=== PATIENT | male | born 1975 | race Caucasian/White ===

== ENCOUNTER 2022-04-18 08:49 | Outpatient (REF) | payer OTHER, SELFPAY ==
--- NOTE | ~2022-04-18 | XR_ITS ---
EXAMINATION: XR LUMBOSACRAL SPINE CLINICAL INFORMATION: Lower back pain COMPARISON: None TECHNIQUE: Three views of the lumbosacral spine. FINDINGS: No fracture or subluxation. Vertebral body height and alignment maintained. Disc spaces are maintained with small endplate osteophytes present. Mild facet arthropathy throughout. The sacroiliac joints are symmetric. The visualized sacrum is intact. XR/XR lumbar spine 2-3V IMPRESSION: Mild degenerative changes throughout the lumbar spine.
[2022-04-18 11:18] LABS: MANUAL DIFF FLAG NO
[2022-04-18 11:26] LABS: Basophils Percent Auto 0.3 % (0-2); Eosinophils Absolute Auto 0.1 X10*3/uL (0.0-0.4); Eosinophils Percent Auto 1.2 % (0-4); Hematocrit 45.9 % (42.0-52.0); Hemoglobin 15.6 g/dl (14.0-18.0); Imm Gran Abs Auto 0.03 X10*3/uL (0.00-0.03); Imm Gran Pct Auto 0.4 % (0.0-0.4); Lymphocytes Absolute Auto 2.3 X10*3/uL (1.2-4.9); Lymphocytes Percent Auto 34.3 % (20-40); Mean Corpuscular Hemoglobin 29.6 pg (27.0-33.0); Mean Corpuscular Volume 87.1 fL (80.0-98.0); Mean Platelet Volume 9.6 fL (9.4-12.4); Monocytes Absolute Auto 0.5 X10*3/uL (0.1-1.2); Monocytes Percent Auto 6.9 % (2-11); Neutrophils Absolute Auto 3.8 x10*3/uL (2.0-8.3); Neutrophils Percent Auto 56.9 % (45-73); Platelet Count 286 X10*3/uL (160-400); Red Blood Count 5.27 X10*6/uL (4.60-5.80); White Blood Count 6.7 X10*3/uL (4.8-10.8)
[2022-04-18 11:49] LABS: Alanine Aminotransferase 17 U/L (0-40); Albumin Level 4.3 g/dL (3.5-5.0); Alkaline Phosphatase 71 U/L (39-117); Anion Gap 11 (12-20); Aspartate Amino Transferase 18 U/L (5-37); Bilirubin Total 0.5 mg/dL (0.0-1.0); Blood Urea Nitrogen 10 mg/dL (9-16); Calcium 9.5 mg/dL (8.4-10.2); Carbon Dioxide 29 mmol/L (22-29); Chloride 104 mmol/L (96-108); Cholesterol 234 mg/dL; Estimated Glomerular Filt Rate > 60; Glucose Fasting 91 mg/dL (60-99); HDL Cholesterol 46 mg/dL; LDL Cholesterol Calculated 159 mg/dl; Potassium 4.6 mmol/L (3.3-5.1); Sodium 139 mmol/L (135-145); Total Protein 7.8 g/dL (6.5-8.0); Triglycerides 148 mg/dL
== END 2022-04-18 08:50 | disposition home or self-care (01) ==
LOC: HO.HMGCLDS 08:49
PROVIDERS: PCP Internal Medicine; Visit Provider Internal Medicine
DX: Z00.00 Encounter for general adult medical examination without abnormal findings (principal); M54.50 Low back pain, unspecified
CPT/HCPCS: 36415; 72100; 80053; 80061; 85025

== ENCOUNTER 2022-11-13 09:35 | Outpatient (AMB) | payer OTHER, SELFPAY ==
[2022-11-13 09:51] VITALS: BP 130/80; PULSE 80; TEMP 36.6; O2SAT 98; BMI 25.8
--- NOTE | 2022-11-13 09:51 | MHC.OFFWIV ---
Intake Vital Signs 11/13/22 09:51 Height 6 ft 1 in Weight 195 lb 8 oz BMI 25.8 BP 130/80 Blood Pressure Location Rt brachial Position Sitting Pulse 80 Pulse Source Pulse Oximeter Temp 97.8 F Temp Source Temporal Artery Scan Pulse Oximetry (%) 98 Oxygen Delivery Method Room Air Intake Visit Reasons: EP Bump on Back Intake Note: pt is here for bump on back Patient Tobacco Use Status: Never used Tobacco Allergies No Known Allergies Allergy (Verified 11/13/22 10:32) Medication List - Last Reconciled 11/13/22 by Nuno Gonzalez MD No Known Home Meds Do you need a note to return to daycare/school/sports/work: Yes HPI EP Bump on Back HPI Details 47-year-old male presents to the office for a sick visit. He has noticed a bump on his upper back. He noticed it a month ago. No pain or discomfort. Able to function and do all activities of daily living. PFSH Family History Father COPD (chronic obstructive pulmonary disease) Mother Hypertension Social History (Updated 04/17/22 @ 09:55 by Jacqueline English MD) Household Members Other:: , 2 children (4,6 ), Housing: House Patient Tobacco Use Status: Never used Tobacco e-Cigarette/Vaping Use: Never Used Current occupational status: employed Cognitive needs: No Hearing needs: No Vision needs: No Physical Exam Vital Signs: Last Vital Signs Temp 97.8 F 11/13/22 09:51 Pulse 80 11/13/22 09:51 BP 130/80 11/13/22 09:51 Pulse Ox 98 11/13/22 09:51 Oxygen Delivery Method Room Air 11/13/22 09:51 BMI result Body Mass Index 25.8 Back/Spine/Pelvis Other: Upper back: Just above the spine of the scapula a partially visible 3 cm swelling. Indistinct borders. No tenderness. Assessment & Plan Assessment & Plan (1) Lipoma: Code(s): D17.9 - Benign lipomatous neoplasm, unspecified Plan: Lesion mostly resembles a lipoma. An ultrasound has been ordered to confirm. Orders: Orders US chest Today D17.9 - Benign lipomatous neoplasm, unspecified Coding Level of Care Code Est Pt Level 4 (92771) Diagnoses Lipoma D17.9
== END 2022-11-13 10:29 | disposition home or self-care (01) ==
PROVIDERS: PCP Internal Medicine; Visit Provider Internal Medicine
DX: D17.9 Benign lipomatous neoplasm, unspecified (principal)
CPT/HCPCS: 99214

== ENCOUNTER 2022-11-15 14:42 | Outpatient (REF) | payer OTHER, SELFPAY | END 2022-11-15 14:43 | disposition home or self-care (01) | LOC: HO.HMGCX 14:42 | PROVIDERS: Visit Provider Internal Medicine | DX: D17.9 Benign lipomatous neoplasm, unspecified (principal) | CPT/HCPCS: 76604 ==

== ENCOUNTER 2022-11-30 11:42 | Outpatient (AMB) | payer OTHER, SELFPAY ==
[2022-11-30 11:44] VITALS: BP 104/66; PULSE 81; O2SAT 97; BMI 25.1
--- NOTE | 2022-11-30 11:44 | MHC.PC.OV ---
Vital Signs 11/30/22 11:44 Height 6 ft 1 in Weight 190 lb BMI 25.1 BP 104/66 Blood Pressure Location Lt brachial Position Sitting Pulse 81 Pulse Source Pulse Oximeter Pulse Oximetry (%) 97 Oxygen Delivery Method Room Air Intake Visit Reasons: Follow up Cholesterol Intake Note: Pt is here today for a follow up visit. Allergies No Known Allergies Allergy (Verified 11/30/22 11:46) Medication List - Last Reconciled 11/30/22 by Jacqueline English MD No Known Home Meds Tobacco use date assessed: 11/30/22 Dental Screening Dental Screen Date: 11/30/22 Did you have a dental visit in the last 12 months?: Yes Did you have a dental problem in the last 6 months where you did not have access to dental care?: No Was dental information given to patient?: Patient has dentist HPI Follow up Cholesterol HPI Details Patient presents for the follow-up of hyperlipidemia. He has been following low-cholesterol diet but still eating steaks occasionally and sweets. PFSH Family History Father COPD (chronic obstructive pulmonary disease) Mother Hypertension Social History (Updated 04/17/22 @ 09:55 by Jacqueline nEglish MD) Household Members Other:: , 2 children (4,6 ), Housing: House Patient Tobacco Use Status: Never used Tobacco e-Cigarette/Vaping Use: Never Used Current occupational status: employed Cognitive needs: No Hearing needs: No Vision needs: No Questionnaire Thrive Questionnaire Date Thrive assessed: 04/17/22 KELLEN-7 AMB Questionnaire KELLEN-7 Date KELLEN - 7 assessed: 04/17/22 Source: Developed by Drs. Mayur Kuo, Nadege Hope, Hector Harkins and colleagues, with an educational anuel from [employer]. Review of Systems Const All systems reviewed & are unremarkable except as noted in HPI and below Reports no additional complaints Eyes Reports no additional complaints ENT Reports no additional complaints Card Reports no additional complaints Resp Reports no additional complaints GI Reports no additional complaints Reports no additional complaints Physical exam (Primary Care) Vital Signs: Last Vital Signs Pulse 81 11/30/22 11:44 BP 104/66 11/30/22 11:44 Pulse Ox 97 11/30/22 11:44 Oxygen Delivery Method Room Air 11/30/22 11:44 BMI result Body Mass Index 25.1 Tobacco/Smoking Status: Tobacco use Status Tobacco use date assessed 11/30/22 11/30/22 11:48 Patient Tobacco Use Status Never used Tobacco 11/30/22 11:48 e-Cigarette/Vaping Use Never Used 11/30/22 11:48 Thrive Assessment: Date of Thrive Assessment Date Thrive assessed 04/17/22 11/30/22 11:48 Const General: no acute distress HENMT Head: Yes normal to inspection Neck Neck: Yes supple Resp Effort & Inspection: normal respiratory effort Auscultation: clear to auscultation bilaterally Cardio Rhythm: regular rhythm Heart sounds: S1 normal heart sound present and S2 normal heart sound present Assessment and Plan Assessment & Plan (1) Hyperlipidemia: Code(s): E78.5 - Hyperlipidemia, unspecified Plan: Continue low-cholesterol diet. patient will return for fasting lipid profile and follow-up in 4 months for physical (2) Lipoma: Comment: L subscapular region, US 11/18 Code(s): D17.9 - Benign lipomatous neoplasm, unspecified Plan: Check ultrasound report Orders: Orders Lipid Panel Today E78.5 - Hyperlipidemia, unspecified Comprehensive [place]. Panel Fast 4 Months E78.5 - Hyperlipidemia, unspecified, Z00.00 - Encounter for general adult medical examination without abnormal findings Complete Blood Count Auto Diff 4 Months E78.5 - Hyperlipidemia, unspecified, Z00.00 - Encounter for general adult medical examination without abnormal findings Lipid Panel 4 Months E78.5 - Hyperlipidemia, unspecified, Z00.00 - Encounter for general adult medical examination without abnormal findings UA w Microscopic 4 Months E78.5 - Hyperlipidemia, unspecified, Z00.00 - Encounter for general adult medical examination without abnormal findings Referrals Gastroenterology Referral E78.5 - Hyperlipidemia, unspecified, Z00.00 - Encounter for general adult medical examination without abnormal findings Coding Level of Care Code Est Pt Level 3 (38608) Diagnoses Hyperlipidemia E78.5 Lipoma D17.9
== END 2022-11-30 12:12 | disposition home or self-care (01) ==
PROVIDERS: PCP Internal Medicine; Visit Provider Internal Medicine
DX: E78.5 Hyperlipidemia, unspecified (principal); D17.9 Benign lipomatous neoplasm, unspecified
CPT/HCPCS: 99213

== ENCOUNTER 2022-12-09 07:43 | Outpatient (REF) | payer OTHER, SELFPAY ==
[2022-12-09 11:43] LABS: Cholesterol 213 mg/dL (<200); HDL Cholesterol 56 mg/dL (>40); LDL Cholesterol Calculated 147 mg/dL (<100); Triglycerides 51 mg/dL (<150)
== END 2022-12-09 07:44 | disposition home or self-care (01) ==
LOC: HO.HMGCLDS 07:43
PROVIDERS: PCP Internal Medicine; Visit Provider Internal Medicine
DX: E78.5 Hyperlipidemia, unspecified (principal)
CPT/HCPCS: 36415; 80061

== ENCOUNTER 2023-01-02 09:16 | Outpatient (AMB) | payer OTHER, SELFPAY ==
--- NOTE | 2023-01-02 09:17 | MHC.OFFVIS ---
Intake Vital Signs 01/02/23 09:23 Height 6 ft 1 in Weight 198 lb BMI 26.1 BP 131/68 Blood Pressure Location Rt brachial Position Sitting Pulse 85 Intake Visit Reasons: Lipoma~ Lt scapula region Intake Note: Patient referred for lipoma on back. Noticed for 1 month. Denies pain, itch, oozing. No personal or family hx of skin ca. 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 He has had this indeterminate time. It is increasing in size, become more symptomatic Patient has no such lesions elsewhere. Chart was reviewed patient evaluated. [facility] Surgical History (Updated 01/02/23 @ 09:45 by Jorgito Freedman MD) Hx of tonsillectomy Family History Father COPD (chronic obstructive pulmonary disease) Mother Hypertension Social History (Updated 01/02/23 @ 09:22 by BIB Granados) Household Members Other:: , 2 children (4,6 ), Housing: House Alcohol intake: current Alcohol intake frequency: holidays/special occasions only Alcohol type: hard liquor Patient Tobacco Use Status: Never used Tobacco e-Cigarette/Vaping Use: Never Used Current occupational status: employed Cognitive needs: No Hearing needs: No Vision needs: No Physical Exam Vital Signs: Last Vital Signs Pulse 85 01/02/23 09:23 BP 131/68 01/02/23 09:23 BMI result Body Mass Index 26.1 Const Other: Well-developed male. Chest Other: Chest breath sounds bilaterally, HS 1 in 2 GI Other: Abdomen soft, benign Back/Spine/Pelvis Other: Patient has a very deeply situated mass measuring approximately 7 x 5 cm consistent with large, intramuscular back lipoma. Assessment & Plan Assessment & Plan (1) Lipoma: Comment: L subscapular region, US 11/18 Code(s): D17.9 - Benign lipomatous neoplasm, unspecified Plan Discussed with the patient's the risks, benefits, alternatives of excision of this process which included but not limited to bleeding, infection, recurrence, numbness, pain, scarring, seroma formation, wound dehiscence and the patient wishes to proceed. All questions were answered. Arrangements will be made for this on a day which is convenient for him. Coding Level of Care Code New Pt Level 5 (32747) Diagnoses Lipoma D17.9
[2023-01-02 09:23] VITALS: BP 131/68; PULSE 85; BMI 26.1
== END 2023-01-02 09:35 | disposition home or self-care (01) ==
PROVIDERS: PCP Internal Medicine; Visit Provider Surgery
DX: D17.1 Benign lipomatous neoplasm of skin and subcutaneous tissue of trunk (principal)
CPT/HCPCS: 99204

== ENCOUNTER → 2023-01-02 09:16 | Outpatient (BNVA) | payer OTHER, SELFPAY | PROVIDERS: PCP Internal Medicine; Visit Provider Surgery ==

== ENCOUNTER 2023-01-08 11:28 | Outpatient (AMB) | payer OTHER, SELFPAY ==
--- NOTE | 2023-01-08 11:42 | A.OFFPC_ITS ---
Vital Signs 01/08/23 11:44 Height 6 ft 1 in Weight 194 lb BMI 25.6 BP 110/66 Blood Pressure Location Rt brachial Position Sitting Pulse 61 Pulse Source Pulse Oximeter Pulse Oximetry (%) 97 Oxygen Delivery Method Room Air Intake Visit Reasons: follow up Allergies No Known Allergies Allergy (Verified 01/08/23 11:44) Medication List - Last Reconciled 01/08/23 by Jacqueline English MD No Known Home Meds Tobacco use date assessed: 11/30/22 HPI follow up HPI Details Patient presents for the follow-up of hyperlipidemia. He has been following low-cholesterol diet and started exercising 3 times a week PFS Surgical History (Updated 01/02/23 @ 09:45 by Jorgito Freedman MD) Hx of tonsillectomy Family History Father COPD (chronic obstructive pulmonary disease) Mother Hypertension Social History (Updated 01/02/23 @ 09:22 by BIB Granados) Household Members Other:: , 2 children (4,6 ), Housing: House Alcohol intake: current Alcohol intake frequency: holidays/special occasions only Alcohol type: hard liquor Patient Tobacco Use Status: Never used Tobacco e-Cigarette/Vaping Use: Never Used Current occupational status: employed Cognitive needs: No Hearing needs: No Vision needs: No Questionnaire Thrive Questionnaire Date Thrive assessed: 04/17/22 KELLEN-7 AMB Questionnaire KELLEN-7 Date KELLEN - 7 assessed: 04/17/22 Source: Developed by Drs. Mayur Kuo, Nadege Hope, Hector Harkins and colleagues, with an educational anuel from [email or web address]. Review of Systems Const All systems reviewed & are unremarkable except as noted in HPI and below Reports no additional complaints Eyes Reports no additional complaints ENT Reports no additional complaints Card Reports no additional complaints Resp Reports no additional complaints GI Reports no additional complaints Physical exam (Primary Care) Vital Signs: Last Vital Signs Pulse 61 01/08/23 11:44 BP 110/66 01/08/23 11:44 Pulse Ox 97 01/08/23 11:44 Oxygen Delivery Method Room Air 01/08/23 11:44 BMI result Body Mass Index 25.6 Tobacco/Smoking Status: Tobacco use Status Tobacco use date assessed 11/30/22 01/08/23 11:46 Patient Tobacco Use Status Never used Tobacco 01/08/23 11:46 e-Cigarette/Vaping Use Never Used 01/08/23 11:46 Thrive Assessment: Date of Thrive Assessment Date Thrive assessed 04/17/22 01/08/23 11:46 Const General: no acute distress Neck Neck: Yes supple Resp Effort & Inspection: normal respiratory effort Auscultation: clear to auscultation bilaterally Cardio Rhythm: regular rhythm Heart sounds: S1 normal heart sound present and S2 normal heart sound present Assessment and Plan Assessment & Plan (1) Hyperlipidemia: Code(s): E78.5 - Hyperlipidemia, unspecified Plan: Continue low-cholesterol diet follow-up in March for a physical with fasting labs before (2) Lipoma: Comment: L subscapular region, US 11/18 Code(s): D17.9 - Benign lipomatous neoplasm, unspecified Plan: Patient is scheduled for the excision of lipoma Coding Level of Care Code Est Pt Level 3 (63256) Diagnoses Hyperlipidemia E78.5 Lipoma D17.9
[2023-01-08 11:44] VITALS: BP 110/66; PULSE 61; O2SAT 97; BMI 25.6
== END 2023-01-08 12:23 | disposition home or self-care (01) ==
PROVIDERS: PCP Internal Medicine; Visit Provider Internal Medicine
DX: E78.5 Hyperlipidemia, unspecified (principal); D17.9 Benign lipomatous neoplasm, unspecified
CPT/HCPCS: 99213

== ENCOUNTER 2023-02-01 09:14 | Day surgery (SDC) | payer OTHER, SELFPAY ==
[2023-01-30 08:45] VITALS: BMI 25.6
--- NOTE | 2023-01-31 08:47 | HO.ANESPROP2 ---
Documented by User: Danielle Rosa NP 01/31/23 08:48 HPI - Anesthesia Eval Consult details Narrative: 47yo M for Left Wide Local Excision Left Deep Scapular Back Mass PMFSH Active Problems Active Problems: All Active Problems (Updated 04/20/22 @ 15:51 by Jacqueline English MD) Lipoma (Acute) Hyperlipidemia (Acute) Lower back pain (Acute) Annual physical exam (Acute) Neck pain (Acute) Dysplastic nevus (Acute) Past Medical History Medical History Hyperlipidemia Family History Family History Father COPD (chronic obstructive pulmonary disease) Mother Hypertension Surgical History Surgical History Hx of tonsillectomy Social History Social History Household Members Other:: , 2 children (4,6 ), Housing: House Alcohol intake: current Alcohol intake frequency: holidays/special occasions only Alcohol type: hard liquor Patient Tobacco Use Status: Former Tobacco user Tobacco use type: Cigarette Smoked in Last 30 Days: No e-Cigarette/Vaping Use: Never Used Use of substances other than those prescribed or required for medical reasons: No Are you DNR?: No Advance Directives: No Advance Directives Information Provided: Yes Current occupational status: employed Cognitive needs: No Hearing needs: No Vision needs: No Meds Allergies Allergy/AdvReac Type Severity Reaction Status Date / Time No Known Allergies Allergy Verified 02/01/23 10:42 Exam Height,Weight and Vital Signs: Height 6 ft 1 in Weight 87.997 kg Assessment and Plan Assessment Anesthesia Assessment: Chart Reviewed Documented by User: Kylah Mariano MD 02/01/23 13:07 HPI - Anesthesia Eval Consult details Narrative: 47yo M for Wide Local Excision Left Deep Scapular Back Mass PMFSH Active Problems Active Problems: All Active Problems (Updated 02/01/23 @ 12:22 by Kylah Mariano MD) Lipoma (Acute) Hyperlipidemia (Acute) Lower back pain (Acute) Annual physical exam (Acute) Neck pain (Acute) Dysplastic nevus (Acute) Past Medical History Medical History Hyperlipidemia Family History Family History Father COPD (chronic obstructive pulmonary disease) Mother Hypertension Family history of problems with anesthesia: No Surgical History Surgical History Hx of tonsillectomy History of Problems with Anesthesia: No Social History Social History Household Members Other:: , 2 children (4,6 ), Housing: House Alcohol intake: current Alcohol intake frequency: holidays/special occasions only Alcohol type: hard liquor Patient Tobacco Use Status: Former Tobacco user Tobacco use type: Cigarette Smoked in Last 30 Days: No e-Cigarette/Vaping Use: Never Used Use of substances other than those prescribed or required for medical reasons: No Are you DNR?: No Advance Directives: No Advance Directives Information Provided: Yes Current occupational status: employed Cognitive needs: No Hearing needs: No Vision needs: No Meds Allergies Allergy/AdvReac Type Severity Reaction Status Date / Time No Known Allergies Allergy Verified 02/01/23 10:42 Exam Height,Weight and Vital Signs: Height 6 ft 1 in Weight 87.997 kg Vital Signs Temp Pulse Resp BP Pulse Ox O2 Del Method 02/01/23 10:42 98.8 F 80 16 130/88 97 Room Air Airway Mallampati Class: II TM Dist: >3cm Neck ROM: Full Loose/Missing/Broken Teeth: Yes (Missing 1 tooth bottom left- extracted. Denies broken or loose teeth) Heart: RRR Lungs: CTAB Assessment and Plan Assessment Anesthesia Assessment: Anesthesia Plan Discussed Final Anesthetic Review Family History of Problems with Anesthesia: No History of Problems with Anesthesia: No NPO: Yes ASA Class: II Final Preanesthetic Review: No Changes in Pt Med Stat, Meds/Allgs Chart Reviewed, Consent Obtained/Reviewed and Anes Risks/Benef Reviewed Patient Risk: Low Procedure Risk: Low Assessment/Block/Sedation in SS: Assess/Block/Sedation-SS Anesthetic Plan Anesthetic Plan: GA and MAC: Disposition: Standard PACU
--- NOTE | 2023-01-31 14:02 | MHC.SHP ---
Pre-Procedural Eval Section A Date of Service: 01/31/23 The patient is an INPATIENT: No Changes since office visit: No Cold of Flu in the past 2 weeks, No New Medical Problems, No Changes in Medication and No Patient answered all questions The History & Physical has been completed within 30 days and I have reviewed it.: Yes Section B Chief Complaint: Benign lipomatous neoplasm, unspecified Allergies: Allergies Allergy/AdvReac Type Severity Reaction Status Date / Time No Known Allergies Allergy Verified 01/08/23 11:44 Plan I have reviewed the history and physical and performed a pertinent physical examination on my patient. No changes have occurred unless specified. Time Spent With Patient Time: Total time managing care of this patient today ____ minutes.
[2023-02-01 10:42] VITALS: BP 130/88; PULSE 80; RESP 16; TEMP 37.1; O2SAT 97; BMI 26.0
[2023-02-01] MEDS: Lactated Ringers 1,000 ML 100 ML IVCONT (11:58)
[2023-02-01 13:33] VITALS: BP 116/79; PULSE 95; RESP 16; TEMP 36.8; O2SAT 93
[2023-02-01 13:48] VITALS: BP 124/80; PULSE 89; RESP 16; O2SAT 94
--- NOTE | 2023-02-01 13:57 | W.PM.OPN ---
Operative Note Operative Note Date of Service: 02/01/23 Narrative: Preoperative diagnosis: [] Deep left upper back intramuscular lipoma Postop diagnosis: [] Same Procedure [] excision deep intramuscular lipoma left upper back Surgeon: [] Tano Industrial Machine Operator: [] Type of Anesthesia: [] MAC Indication for surgery: [] Specimen measured 9 by 6 cm on the scapula deep to both latissimus dorsi and trapezius muscles Findings: [] Patient brought to the operating room, placed on operative table supine position, after adequate level of MAC anesthesia was induced, patient placed in the right lateral decubitus position. Left upper back was prepped and draped in usual sterile fashion. A transverse incision was made over the mass in question over the left mid scapular area and carried down through skin subcutaneous tissue, latissimus dorsi and trapezius muscles were split and the lipoma was encountered in uneventfully enucleated with dimensions as described above using combination of blunt, sharp, and Bovie dissection. Specimen sent to pathology. Wound was irrigated secured hemostasis. Was closed in the following manner; back muscles were reapproximated using U-stitch 2-0 Vicryl. Subcutaneous tissue was reapproximated using interrupted 2-0 Vicryl suture. Skin was closed using interrupted inverted dermal 2-0 and 3-0 alternating Vicryl sutures followed by Steri-Strips and sterile dressings. Wound was infiltrated 0.5% Marcaine/1% the lidocaine at completion. Sponge, needle, instrument counts reported correct. Patient tolerated procedure well and emerged anesthesia stable condition. EBL minimal
[2023-02-01 14:03] VITALS: BP 132/83; PULSE 86; RESP 16; TEMP 36.4; O2SAT 95
== END 2023-02-01 14:37 | disposition home or self-care (01) ==
PROVIDERS: PCP Internal Medicine; Visit Provider Surgery
PROC: (CPT 21933; principal; 2023-02-01 11:30)
DX: D17.1 Benign lipomatous neoplasm of skin and subcutaneous tissue of trunk (principal); E78.5 Hyperlipidemia, unspecified; Z87.891 Personal history of nicotine dependence
CPT/HCPCS: 21933; 88304; J0690; J2250; J2704; J2795; J3010

== ENCOUNTER → 2023-02-01 09:14 | Outpatient (BNV) | payer OTHER, SELFPAY | PROVIDERS: PCP Internal Medicine; Visit Provider Surgery | DX: D17.1 Benign lipomatous neoplasm of skin and subcutaneous tissue of trunk (principal) | CPT/HCPCS: 21933 ==

== ENCOUNTER 2023-02-12 13:34 | Outpatient (AMB) | payer OTHER, SELFPAY ==
[2023-02-12 13:42] VITALS: BP 121/73; PULSE 87
--- NOTE | 2023-02-12 13:42 | A.OFFVIS_ITS ---
Intake Vital Signs 02/12/23 13:42 Weight 204 lb BP 121/73 Blood Pressure Location Rt brachial Position Sitting Pulse 87 Intake Visit Reasons: S/p WLE left deep scapular back mass Intake Note: Patient here s/p exc lipoma on back. Reports incision healing well. Finished rx pain meds. Patient is very anxious to know bx results. 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 He has no wound issues or complaints. Pathology is benign PFSH Medical History Hyperlipidemia Surgical History Hx of tonsillectomy Family History Father COPD (chronic obstructive pulmonary disease) Mother Hypertension Social History Household Members Other:: , 2 children (4,6 ), Housing: House Alcohol intake: current Alcohol intake frequency: holidays/special occasions only Alcohol type: hard liquor Patient Tobacco Use Status: Former Tobacco user Tobacco use type: Cigarette e-Cigarette/Vaping Use: Never Used Current occupational status: employed Cognitive needs: No Hearing needs: No Vision needs: No Physical Exam Vital Signs: Last Vital Signs Pulse 87 02/12/23 13:42 BP 121/73 02/12/23 13:42 Back/Spine/Pelvis Other: Wound is well healed. Assessment & Plan Assessment & Plan (1) Lipoma: Comment: L subscapular region, US 11/18 Code(s): D17.9 - Benign lipomatous neoplasm, unspecified Plan Patient has been given very specific local wound instructions including avoiding stress activities the next few weeks time. All questions answered. He will follow-up p.r.n.. Coding Level of Care Code Global (69323) Diagnoses Lipoma D17.9
== END 2023-02-12 13:43 | disposition home or self-care (01) ==
PROVIDERS: PCP Internal Medicine; Visit Provider Surgery
DX: D17.9 Benign lipomatous neoplasm, unspecified (principal)
CPT/HCPCS: 99024

== ENCOUNTER → 2023-02-12 13:34 | Outpatient (BNVA) | payer OTHER, SELFPAY | PROVIDERS: PCP Internal Medicine; Visit Provider Surgery ==

== ENCOUNTER 2023-02-16 08:42 | Outpatient (AMB) | payer OTHER, SELFPAY ==
--- NOTE | 2023-02-16 09:42 | AM.OFFWIN_ITS ---
Intake Vital Signs 02/16/23 09:53 Weight 201 lb 6 oz BP 128/88 Blood Pressure Location Lt brachial Position Sitting Pulse 79 Pulse Source Pulse Oximeter Temp 97.8 F Temp Source Oral Pulse Oximetry (%) 98 Oxygen Delivery Method Room Air Intake Visit Reasons: EP Right hand locks up/pain [id number] Intake Note: Pt is here today for Rt hand lock up, pt states it started about 3 to 4 wks ago. Patient Tobacco Use Status: Former Tobacco user Allergies No Known Allergies Allergy (Verified 02/16/23 09:42) Do you need a note to return to daycare/school/sports/work: No HPI EP Right hand locks up/pain [id number] HPI Details This is a 47 year old male patient who presents today with a several month history of third finger of right hand locking in flexed position. This used to happen intermittently, however now this occurs every time he flexes fingers or grasps anything. He has been wearing a splint for this at night, however feels limited by the splint during the day as he is right hand dominant. [facility] Medical History Hyperlipidemia Surgical History Hx of tonsillectomy Family History Father COPD (chronic obstructive pulmonary disease) Mother Hypertension Social History Household Members Other:: , 2 children (4,6 ), Housing: House Alcohol intake: current Alcohol intake frequency: holidays/special occasions only Alcohol type: hard liquor Patient Tobacco Use Status: Former Tobacco user Tobacco use type: Cigarette e-Cigarette/Vaping Use: Never Used Current occupational status: employed Cognitive needs: No Hearing needs: No Vision needs: No Review of Systems Const All systems reviewed & are unremarkable except as noted in HPI and below Physical Exam Vital Signs: Last Vital Signs Temp 97.8 F 02/16/23 09:53 Pulse 79 02/16/23 09:53 BP 128/88 02/16/23 09:53 Pulse Ox 98 12/22/23 09:53 Oxygen Delivery Method Room Air 12/22/23 09:53 Const General: no acute distress Resp Effort & Inspection: normal respiratory effort Skin General skin exam: no rashes or lesions noted Extrem Other: 3rd finger right hand locking in flexed position with finger movement. Popping sensation and mild pain when extended straight. General: Yes capillary refill normal Assessment & Plan Assessment & Plan (1) Trigger finger, right middle finger: Code(s): M65.331 - Trigger finger, right middle finger Plan: Advised patient to continue to use splint for this condition. He would also like to see ortho for this. I will confer with his PCP Dr. English for ortho referral. Coding Level of Care Code Est Pt Level 3 (86693) Diagnoses Trigger finger, right middle finger M65.331
[2023-02-16 09:53] VITALS: BP 128/88; PULSE 79; TEMP 36.6; O2SAT 98
== END 2023-02-16 10:49 | disposition home or self-care (01) ==
PROVIDERS: PCP Internal Medicine; Visit Provider Nurse Practitioner Family
DX: M65.331 Trigger finger, right middle finger (principal)
CPT/HCPCS: 99213

== ENCOUNTER 2023-03-05 14:01 | Outpatient (AMB) | payer OTHER, SELFPAY ==
--- NOTE | 2023-03-05 14:33 | MHC.OFFVIS ---
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 Patient reports ongoing locking for a months. No hx of OT. Pain is worse when over working it per patient. Allergies No Known Allergies Allergy (Verified 03/05/23 14:34) HPI DECORATING CONSULTANT-Trigger finger, right middle finger HPI Details 47-year-old right hand dominant male, who goes by Christiano, presents in the office today, as a new patient, for an evaluation of right middle finger possible trigger finger. The patient was seen at the [facility] on 02/16/2023 with a complaint of about a month, since 01/2023, of right middle finger ?locking? in a flexed position. The patient reported to the clinic provider he has been wearing a splint at night but not during the day to ROM limitations. The patient reports ongoing locking for a few months. He denies a history of occupational therapy. She states the pain is worse when over working it. Patient works in construction, he is currently out of work. Patient has no known allergy history. Patient is not currently taking any medication. Patient has a medical history, as follows: -Hyperlipidemia Patient has a surgical history, as follows: -History of tonsillectomy Patient has a social history, as follows: -Former smoker PFSH Medical History Hyperlipidemia Surgical History Hx of tonsillectomy Family History Father COPD (chronic obstructive pulmonary disease) Mother Hypertension Social History Household Members Other:: , 2 children (4,6 ), Housing: House Alcohol intake: current Alcohol intake frequency: holidays/special occasions only Alcohol type: hard liquor Patient Tobacco Use Status: Former Tobacco user Tobacco use type: Cigarette e-Cigarette/Vaping Use: Never Used Current occupational status: employed Cognitive needs: No Hearing needs: No Vision needs: No Review of Systems Const All systems reviewed & are unremarkable except as noted in HPI and below Physical Exam Const General: cooperative and no acute distress Orientation/consciousness: patient oriented x3 Resp Effort & Inspection: normal respiratory effort and able to speak in complete sentences Cardio Peripheral pulses: Peripheral pulses 2+ throughout Skin General skin exam: no rashes or lesions noted Neuro General: patient oriented x3 Extrem Other: Right middle finger: Normal to inspection. No ecchymosis, erythema, or edema. Active triggering of the right middle finger. Tenderness to palpation over the A1 corona. Able to perform full finger flexion, extension, abduction, adduction, finger cross, okay sign, and thumbs up without deficit. Able to make a closed fist. Sensation intact. Capillary refill is brisk. Radial pulse intact. Assessment & Plan Assessment & Plan (1) Trigger middle finger of right hand: Code(s): M65.331 - Trigger finger, right middle finger Plan Mr. Desai is a 47-year-old right hand dominant male, who goes by Christiano, presents in the office today, as a new patient, for an evaluation of right middle finger possible trigger finger. The patient was seen at the [facility] on 02/16/2023 with a complaint of about a month, since 01/2023, of right middle finger ?locking? in a flexed position. The patient reported to the clinic provider he has been wearing a splint at night but not during the day to ROM limitations. The patient reports ongoing locking for a few months. He denies a history of occupational therapy. She states the pain is worse when over working it. Patient works in construction, he is currently out of work. Patient has no known allergy history. Patient is not currently taking any medication. Patient has a medical history, as follows: -Hyperlipidemia Patient has a surgical history, as follows: -History of tonsillectomy Patient has a social history, as follows: -Former smoker I discussed in detail the procedure and what to expect pre and post operatively. We discussed the risks, benefits and alternatives to the surgery as well as the rehabilitation course. The risks; which include, but are not limited to infection, bleeding, nerve injury, ongoing pain, swelling, and stiffness, perioperative risk of injury to bones and soft tissues, and blood clots. I have answered all questions and with their understanding they have consented to move forward with a right middle finger trigger finger release to be performed by Dr. Faby Miramontes. Follow up will be at the post operative appointment, or sooner if needed. Patient Instructions: Scribed for Meaghan Onofre PA-C by Mckenzie Zamora ophthalmic medical technician, on 03/05/2023 at 2:52 pm, EST. Coding Level of Care Code New Pt Level 4 (14209) Diagnoses Trigger middle finger of right hand M65.331
== END 2023-03-05 15:09 | disposition home or self-care (01) ==
PROVIDERS: PCP Internal Medicine; Visit Provider Physician Assistant
DX: M65.331 Trigger finger, right middle finger (principal)
CPT/HCPCS: 99204

== ENCOUNTER → 2023-03-05 14:01 | Outpatient (BNVA) | payer OTHER, SELFPAY | PROVIDERS: PCP Internal Medicine; Visit Provider Physician Assistant ==

== ENCOUNTER 2023-03-12 08:43 | Day surgery (SDC) | payer OTHER, SELFPAY ==
[2023-03-12 12:14] VITALS: BMI 26.5
--- NOTE | 2023-03-12 13:50 | MHC.SHP ---
Pre-Procedural Eval Section A Date of Service: 03/12/23 The patient is an INPATIENT: No Changes since office visit: No Cold of Flu in the past 2 weeks, No New Medical Problems, No Changes in Medication and No Patient answered all questions The History & Physical has been completed within 30 days and I have reviewed it.: Yes Section B Chief Complaint: Trigger finger, right middle finger Allergies: Allergies Allergy/AdvReac Type Severity Reaction Status Date / Time No Known Allergies Allergy Verified 03/12/23 12:14 Plan I have reviewed the history and physical and performed a pertinent physical examination on my patient. No changes have occurred unless specified. Time Spent With Patient Time: Total time managing care of this patient today ____ minutes.
--- NOTE | 2023-03-12 13:50 | W.PM.OPN ---
Operative Note Operative Note Date of Service: 03/12/23 Narrative: Operative Note Preop diagnosis: 1. Right middle finger Trigger finger Postop diagnosis: 1. Right middle finger Trigger finger Procedure: 1. Right middle finger A1 corona release Surgeon: Faby Miramontes MD Anesthesia: local block using 1% lidocaine with epinephrine Findings: No locking or catching after A1 corona release EBL: Less than 5 mL Tourniquet time: None Specimens: None Complications: None Disposition: Brought to recovery room in stable condition Plan: Follow-up for 10-14 days for wound check and suture removal Indications: The patient is 47 years old, with a right middle finger trigger finger that has been unresponsive to nonoperative management. The risks and benefits of operative treatment including but not limited to risk of damage to blood vessels, nerves, tendons, infection, persistent pain, persistent symptoms, recurrence or possible need for additional surgery were discussed with the patient and the patient wishes to proceed with surgery. Procedure: Once consent was obtained a local block was performed in the preop area using a combination of 1% lidocaine with epinephrine. The patient was then brought back to the operating suite and placed on the operative table in supine position. The right upper extremity was prepped and draped in a standard surgical fashion. Once assured that we had a good block, a 1.5 cm oblique incision was made centered over the A1 corona of the right middle finger . The incision was made through the skin to the subcutaneous tissues using a #15 blade. Careful dissection was made down to the level of the A1 corona using tenotomy scissors, with care being taken to protect the nearby neurovascular structures. A longitudinal incision was made in the A1 corona 1st using a #15 blade, then using tenotomy scissors under direct visualization. The A1 corona was noted to be thickened. Following our A1 corona release, we no longer saw any locking or catching of the digit with flexion and extension. Once satisfied with our A1 corona release the wound was copiously irrigated with normal saline and hemostasis was obtained with a brief period of local pressure. The skin edges were reapproximated with some 5.0 nylon suture material and a sterile dressing was applied. The patient appears to have tolerated the procedure well and with no complications. All digits were well vascularized at the conclusion of the case.
[2023-03-12 14:39] VITALS: BP 130/86; PULSE 97; RESP 16; O2SAT 97
== END 2023-03-12 14:41 | disposition home or self-care (01) ==
PROVIDERS: PCP Internal Medicine; Visit Provider Orthopaedic Surgery
PROC: (CPT 26055; principal; 2023-03-12 12:10)
DX: M65.331 Trigger finger, right middle finger (principal); M24.841 Other specific joint derangements of right hand, not elsewhere classified; E78.5 Hyperlipidemia, unspecified; Z87.891 Personal history of nicotine dependence
CPT/HCPCS: 26055; J0171

== ENCOUNTER → 2023-03-12 08:43 | Outpatient (BNV) | payer OTHER, SELFPAY | PROVIDERS: PCP Internal Medicine; Visit Provider Orthopaedic Surgery | DX: M65.331 Trigger finger, right middle finger (principal) | CPT/HCPCS: 26055 ==

== ENCOUNTER 2023-03-21 09:31 | Outpatient (AMB) | payer OTHER, SELFPAY ==
--- NOTE | 2023-03-21 09:38 | A.OFFVIS_ITS ---
Intake Vital Signs 03/21/23 09:42 Height 6 ft 1 in Weight 200 lb 9.93 oz BMI 26.5 BP 111/73 Blood Pressure Location Lt brachial Position Sitting Pulse 81 Intake Visit Reasons: Hyperlipidemia Intake Note: Orion presents in the office as a new patient for hyperlipidemia. CC: He states that he is not having any concerns at this time. Process Server Required: No Allergies No Known Allergies Allergy (Verified 03/21/23 09:42) HPI Hyperlipidemia HPI Details 47 year old? male is here today for pre colonoscopy screening.? Patient was sent to us by his PCP.? This is his first colonoscopy screening.? Patient denies any gastrointestinal symptoms in the past or at present.? Maternal uncles and aunts had history of colorectal cancer.? Denies history of difficulty with sedation or anesthesia in the past.? Negative for history of sleep apnea.? Denies any history of cardiac, renal, pulmonary, or hepatic disease.?? No history of infectious? diseases like hepatitis A, B, C, HIV or tuberculosis.? Patient is not on any anticoagulation therapy. PFSH Medical History Hyperlipidemia Surgical History Hx of tonsillectomy Family History Father COPD (chronic obstructive pulmonary disease) Mother Hypertension Social History Household Members Other:: , 2 children (4,6 ), Housing: House Alcohol intake: current Alcohol intake frequency: holidays/special occasions only Alcohol type: hard liquor Patient Tobacco Use Status: Former Tobacco user Tobacco use type: Cigarette e-Cigarette/Vaping Use: Never Used Current occupational status: employed Cognitive needs: No Hearing needs: No Vision needs: No Review of Systems Const Denies weight gain and Denies weight loss ENT Reports no additional complaints, Denies dysphagia and Denies odynophagia Card Reports no additional complaints Resp Reports no additional complaints GI Denies abdominal pain, Denies belching, Denies melena, Denies bloating, Denies change in bowel habits, Denies dysphagia, Denies excessive flatus, Denies dyspepsia, Denies heartburn, Denies diarrhea, Denies loose stools, Denies nausea, Denies odynophagia and Denies vomiting Reports no additional complaints Musc Reports no additional complaints Neuro Reports no additional complaints Psych Reports no additional complaints Endo Reports no additional complaints Physical Exam Const General: healthy appearing, no acute distress and well developed Nutritional Appearance: well nourished Orientation/consciousness: patient oriented x3 Resp Effort & Inspection: normal respiratory effort, able to speak in complete sentences, no tracheal deviation and symmetric chest movement Auscultation: clear to auscultation bilaterally Cardio Rate: regular rate GI Inspection: Yes normal to inspection and No distended Palpation (GI): Soft to palpation, not firm, nontender and No hepatosplenomegaly present Auscultation: normal bowel sounds General: Yes no CVA tenderness Back/Spine/Pelvis Back: no CVA tenderness Skin General skin exam: elasticity normal, turgor normal and dry skin Neuro General: patient oriented x3 Psych Appearance: grossly normal Mental Status: mental status grossly normal Assessment & Plan Assessment & Plan (1) Screen for colon cancer: Code(s): Z12.11 - Encounter for screening for malignant neoplasm of colon Plan Patient denies any GI, cardiac or respiratory symptoms.? Denies any issues with anesthesia in the past.? Denies any history of sleep apnea.? No history infectious diseases in the past or present.? Not on any anticoagulation therapy.? No family or personal history of colon cancer or polyps.? Patient denies melena, hematochezia, unintentional weight loss or ribbon like stools.? Discussed at length the pre-procedure,? prep, diet & medications as well as what to expect prior, during and after the procedure.?? Stressed the importance of good bowel prep. ?Recommended the use of Vaseline or Calmoseptine OTC & baby wipes with bowel movements to promote comfort.? ?Patient verbalizes understanding and agrees to plan of care.? He was given the opportunity to ask questions and all questions answered.? We will see him after the procedure.? Medications: New bisacodyl (Dulcolax (bisacodyl)) take 4 tabs at noon the day before your colonoscopy 20 mg (4 x 5 mg) PO ONCE 1 day 4 tabs 0RF Z12.11 - Encounter for screening for malignant neoplasm of colon polyethylene glycol 3350 (Miralax) As directed by gastroenterology department at [facility] 238 grams PO ONCE 238 grams 0RF Z12.11 - Encounter for screening for malignant neoplasm of colon Coding Level of Care Code New Pt Level 3 (67091) Diagnoses Screen for colon cancer Z12.11 Time Spent (min) 40 Comment 30 minutes spent with patient and additional 10 minutes spent reviewing his records
[2023-03-21 09:42] VITALS: BP 111/73; PULSE 81; BMI 26.5
== END 2023-03-21 10:03 | disposition home or self-care (01) ==
PROVIDERS: PCP Internal Medicine; Visit Provider Nurse Practitioner Family
DX: Z01.818 Encounter for other preprocedural examination (principal); Z12.11 Encounter for screening for malignant neoplasm of colon; Z80.0 Family history of malignant neoplasm of digestive organs
CPT/HCPCS: S0285

== ENCOUNTER → 2023-03-21 09:31 | Outpatient (BNVA) | payer OTHER, SELFPAY | PROVIDERS: PCP Internal Medicine; Visit Provider Nurse Practitioner Family ==

== ENCOUNTER 2023-03-27 10:09 | Outpatient (AMB) | payer OTHER, SELFPAY ==
--- NOTE | 2023-03-27 10:18 | MHC.OFFVIS ---
Intake Vital Signs 03/27/23 10:20 Height 6 ft 1 in Weight 200 lb BMI 26.4 Handedness Right Intake Visit Reasons: Rt MF Trigger Release 03/12/23 AR Intake Note: Orion is a 47 year old right hand dominant male who presents today for a post op appointment s/p right MF trigger finger release 03/12/23 AR. Patient reports he notices that his symptoms has improved, however he sees some swelling and having some soreness as well. Allergies No Known Allergies Allergy (Verified 03/27/23 10:20) HPI Rt MF Trigger Release 03/12/23 AR HPI Details 47-year-old right hand dominant male who presents in the office today 15 days status post right middle finger A1 corona release, which was performed on 03/12/[address] Miramontes. The patient reports he noticed his symptoms have improved. He sees some edema and has some soreness. PFSH Medical History Hyperlipidemia Surgical History Hx of tonsillectomy Family History Father COPD (chronic obstructive pulmonary disease) Mother Hypertension Social History Household Members Other:: , 2 children (4,6 ), Housing: House Alcohol intake: current Alcohol intake frequency: holidays/special occasions only Alcohol type: hard liquor Patient Tobacco Use Status: Former Tobacco user Tobacco use type: Cigarette e-Cigarette/Vaping Use: Never Used Current occupational status: employed Cognitive needs: No Hearing needs: No Vision needs: No Review of Systems Const All systems reviewed & are unremarkable except as noted in HPI and below Physical Exam Vital Signs: BMI result Body Mass Index 26.4 Const General: cooperative, healthy appearing and no acute distress Resp Effort & Inspection: normal respiratory effort and able to speak in complete sentences Cardio Rate: regular rate Peripheral pulses: Peripheral pulses 2+ throughout GI Palpation (GI): Soft to palpation Skin Lesions: no lesions Rashes: no rashes Extrem Other: Right middle finger: Incision at the A1 corona is clean, dry, and intact. No signs of infection. Sutures intact. Able to make a closed fist with slight stiffness. Sensation intact. NVI. Assessment & Plan Assessment & Plan (1) Trigger middle finger of right hand: Code(s): M65.331 - Trigger finger, right middle finger Plan Mr. Desai is a 47-year-old right hand dominant male who presents in the office today 15 days status post right middle finger A1 corona release, which was performed on 03/12/[address] Miramontes. The patient reports he noticed his symptoms have improved. He sees some edema and has some soreness. Sutures were removed and steri-stripes were applied. The patient was demonstrated exercises to work on to aid him in making a closed fist. He demonstrates understanding. I encouraged the patient to reach out to the office if he feels he plateaus or issues arise. If this occurs we will place an order for occupational therapy. The patient was asking about lifting restrictions, therefore he was instructed no heavy lifting for an additional 2 weeks. Follow up will be PRN, or sooner if needed. Patient Instructions: Scribed for Meaghan Onofre PA-C by Mckenzie Zamora medical record clerk, on 03/27/2023 at 10:23 am, EST. Coding Level of Care Code Global (22257) Diagnoses Trigger middle finger of right hand M65.331
[2023-03-27 10:20] VITALS: BMI 26.4
== END 2023-03-27 10:38 | disposition home or self-care (01) ==
PROVIDERS: PCP Internal Medicine; Visit Provider Physician Assistant
DX: M65.331 Trigger finger, right middle finger (principal)
CPT/HCPCS: 99024

== ENCOUNTER → 2023-03-27 10:09 | Outpatient (BNVA) | payer OTHER, SELFPAY | PROVIDERS: PCP Internal Medicine; Visit Provider Physician Assistant ==

== ENCOUNTER 2023-04-20 07:56 | Outpatient (AMB) | payer OTHER, SELFPAY ==
--- NOTE | 2023-04-20 08:01 | A.OFFPC_ITS ---
Vital Signs 04/20/23 08:02 Height 6 ft 1 in Weight 200 lb BMI 26.4 BP 112/80 Blood Pressure Location Lt brachial Position Sitting Pulse 71 Pulse Source Pulse Oximeter Pulse Oximetry (%) 97 Oxygen Delivery Method Room Air Intake Visit Reasons: Annual PE Intake Note: Pt is here today for PE. Allergies No Known Allergies Allergy (Verified 04/20/23 08:03) Medication List - Last Reconciled 04/20/23 by Jacqueline English MD bisacodyl (Dulcolax (bisacodyl)) 20 mg (4 x 5 mg) PO ONCE 1 day polyethylene glycol 3350 (Miralax) 238 grams PO ONCE Tobacco use date assessed: 04/20/23 Dental Screening Dental Screen Date: 04/20/23 Did you have a dental visit in the last 12 months?: Yes Did you have a dental problem in the last 6 months where you did not have access to dental care?: No Was dental information given to patient?: Patient has dentist HPI Annual PE HPI Details Pt presents for PE. PFSH Medical History Hyperlipidemia Surgical History Hx of tonsillectomy Family History Father COPD (chronic obstructive pulmonary disease) Mother Hypertension Social History Household Members Other:: , 2 children (4,6 ), Housing: House Alcohol intake: current Alcohol intake frequency: holidays/special occasions only Alcohol type: hard liquor Patient Tobacco Use Status: Former Tobacco user Tobacco use type: Cigarette e-Cigarette/Vaping Use: Never Used Current occupational status: employed Cognitive needs: No Hearing needs: No Vision needs: No Questionnaire PHQ-9 Over the last 2 weeks, how often have you been bothered by any of the following problems? 1. Little interest or pleasure in doing things: not at all 2. Feeling down, depressed, or hopeless: not at all 3. Trouble falling or staying asleep, or sleeping too much: not at all 4. Feeling tired or having little energy: not at all 5. Poor appetite or overeating: not at all 6. Feeling bad about yourself - or that you are a failure or have let yourself or your family down: not at all 7. Trouble concentrating on things, such as reading the newspaper or watching television: not at all 8. Moving or speaking so slowly that other people could have noticed. Or the opposite - being so fidgety or restless that you have been moving around a lot more than usual: not at all 9. Thoughts that you would be better off or of hurting yourself in some way: not at all Total score: 0 Depression Screening Interpretation: Negative Depression Screening Done: Yes Source: Developed by Drs. Mayur Kuo, Nadege Hope, Hector Harkins and colleagues, with an educational anuel from [employer]. Thrive Questionnaire Date Thrive assessed: 04/20/23 I am a: Patient What is your living situation today?: I have a steady place to live Within the past 12 months, did the food you bought not last and you didn't have the money to get more?: Never true Within the past 12 months, did you worry whether your food would run out before you got money to buy more?: Never true Do you have trouble paying for medicines?: No Do you have trouble getting transportation to medical appointments?: No Do you have trouble paying your heating and electricity bill?: No Do you have trouble taking care of your child, family member or friend?: No Do you have trouble with day-to-day activities such as bathing, preparing meals, shopping, managing finances, etc.?: No Are you currently unemployed and looking for a job?: No Are you interested in more education?: No Please select the resources that you would like help with: None Currently or been in a relationship where the following occur: no concerns reported THRIVE Score: 0 AUDIT C Alcohol Use Questionnaire (AUDIT-C) 1. How often do you have a drink containing alcohol?: Monthly or less 2. How many drinks containing alcohol do you have on a typical day when you are drinking?: 1 or 2 3. How often do you have six or more drinks on one occasion?: Never Total Score: 1 KELLEN-7 AMB Questionnaire KELLEN-7 Date KELLEN - 7 assessed: 04/20/23 Feeling nervous, anxious, or on edge: 0 = Not at all Not being able to stop or control worryin = Not at all Worrying too much about different things: 0 = Not at all Trouble relaxin = Not at all Being so restless that it is hard to sit still: 0 = Not at all Becoming easily annoyed or irritable: 0 = Not at all Feeling afraid as if something awful might happen: 0 = Not at all Total KELLEN-7 score (0-4 normal; 5-9 mild; 10-14 moderate; 15-21 severe): 0 Source: Developed by Drs. Mayur Kuo, Nadege Hope, Hector Harkins and colleagues, with an educational anuel from [employer]. Review of Systems Const All systems reviewed & are unremarkable except as noted in HPI and below Reports no additional complaints Eyes Reports no additional complaints ENT Reports no additional complaints Card Reports no additional complaints Resp Reports no additional complaints GI Reports no additional complaints Physical exam (Primary Care) Vital Signs: Last Vital Signs Pulse 71 04/20/23 08:02 BP 112/80 04/20/23 08:02 Pulse Ox 97 04/20/23 08:02 Oxygen Delivery Method Room Air 04/20/23 08:02 BMI result Body Mass Index 26.4 Tobacco/Smoking Status: Tobacco use Status Tobacco use date assessed 04/20/23 04/20/23 08:04 Patient Tobacco Use Status Former Tobacco user 04/20/23 08:02 Tobacco use type Cigarette 04/20/23 08:02 e-Cigarette/Vaping Use Never Used 04/20/23 08:02 PHQ-9: PHQ-9 Score PHQ-9: Total score 0 04/20/23 08:26 Depression Screening Interpretation: Negative Thrive Assessment: Date of Thrive Assessment Date Thrive assessed 04/20/23 04/20/23 08:26 Currently or been in a relationship where the following occur: no concerns reported Const General: no acute distress HENMT Head: Yes normal to inspection Ears: hearing grossly normal bilaterally Face and sinus: Yes normal facial exam Mouth: Normal oral and palatal mucosa present Eyes General: appearance normal, both eyes and all related structures Neck Neck: Yes no lymphadenopathy and Yes supple Resp Effort & Inspection: normal respiratory effort Auscultation: clear to auscultation bilaterally Cardio Rhythm: regular rhythm Heart sounds: S1 normal heart sound present and S2 normal heart sound present GI Inspection: Yes normal to inspection Palpation (GI): Soft to palpation Percussion: Yes normal to percussion Auscultation: normal bowel sounds Assessment and Plan Assessment & Plan (1) Annual physical exam: Code(s): Z00.00 - Encounter for general adult medical examination without abnormal findings Plan: Well-balanced diet regular physical activity discussed with the patient he is scheduled for colonoscopy. Patient will return for fasting blood work Orders: Orders Lipid Panel Today Z00.00 - Encounter for general adult medical examination without abnormal findings UA w Microscopic Today Z00.00 - Encounter for general adult medical examination without abnormal findings Comprehensive Perry. Panel Fast Today Z00.00 - Encounter for general adult medical examination without abnormal findings Complete Blood Count Auto Diff Today Z00.00 - Encounter for general adult medical examination without abnormal findings Coding Level of Care Code Est Pt Prev Care 40-64y(55035) Diagnoses Annual physical exam Z00.00
[2023-04-20 08:02] VITALS: BP 112/80; PULSE 71; O2SAT 97; BMI 26.4
== END 2023-04-20 08:54 | disposition home or self-care (01) ==
PROVIDERS: PCP Internal Medicine; Visit Provider Internal Medicine
DX: Z00.00 Encounter for general adult medical examination without abnormal findings (principal)
CPT/HCPCS: 99396

== ENCOUNTER 2023-04-24 09:45 | Outpatient (AMB) | payer OTHER, SELFPAY ==
--- NOTE | 2023-04-24 09:48 | MHC.OFFVIS ---
Intake Vital Signs 04/24/23 09:49 Height 6 ft 1 in Weight 200 lb BMI 26.4 Intake Visit Reasons: P/O 03/12/23 Rt MF Trigger Rel. Pain&swelling Intake Note: Orion 47 year old right hand dominant male who presents today for a post op appointment s/p right MF trigger finger release 03/12/23 AR. States he continues to have pain and tenderness. He is able to make a fist with mild pain. Allergies No Known Allergies Allergy (Verified 04/24/23 09:54) HPI P/O 03/12/23 Rt MF Trigger Rel. Pain&swelling HPI Details Orion, who prefers to go by Christiano, is a 47 year old right hand dominant man who returns with concerns of right middle finger pain. He is S/P right middle trigger finger release, DOS: 03/12/23. He complains of some pain & swelling at the base of his finger. He says he is able to make a fist with mild pain, and he says his locking has resolved. He says if he hits his finger near his incision, his pain & swelling is worse for some time. He also complains of a painful lump in his middle finger at the palmar digital crease.. He says this causes him pain with gripping activities, such as opening a door. He works in construction. [facility] Medical History Hyperlipidemia Surgical History Hx of tonsillectomy Family History Father COPD (chronic obstructive pulmonary disease) Mother Hypertension Social History Household Members Other:: , 2 children (4,6 ), Housing: House Alcohol intake: current Alcohol intake frequency: holidays/special occasions only Alcohol type: hard liquor Patient Tobacco Use Status: Former Tobacco user Tobacco use type: Cigarette e-Cigarette/Vaping Use: Never Used Current occupational status: employed Cognitive needs: No Hearing needs: No Vision needs: No Review of Systems Const All systems reviewed & are unremarkable except as noted in HPI and below Physical Exam Vital Signs: BMI result Body Mass Index 26.4 Const General: no acute distress and alert Orientation/consciousness: patient oriented x3 Neuro General: patient oriented x3 Extrem Other: Evaluation of Right Upper Extremity: The patient is alert, oriented, and in no acute distress Neuro: Median, Ulnar, Radial nerves motor and sensory intact and sensation is normal to the tips of all digits Vascular: Cap refill brisk ROM: He can make a fist and extend all his digits No locking or catching Tender over the A1 corona of the middle finger, still with some mild swelling in this area He has a mass in the palmar digital crease of the right hand, in line with the middle finger flexor tendon sheath, measuring ~2-3mm in diameter most consistent with a retinacular ganglion cyst. Psych Appearance: grossly normal Affect: normal affect Attitude: cooperative Office Procedures Fracture Care Details: No fracture, aspiration retinacular ganglion 10474 Fracture Billing Code: Fracture Billing Code Assessment & Plan Assessment & Plan (1) Trigger middle finger of right hand: Code(s): M65.331 - Trigger finger, right middle finger (2) Ganglion cyst of flexor tendon sheath of finger of right hand: Code(s): M67.441 - Ganglion, right hand Plan Assessment & Plan: 1. Right middle finger trigger finger, S/P release DOS: 03/12/23 The patient appears to be doing well post-operatively I educated him about the post-operative course I discussed activity modification, he will continue to perform ROM exercises at home. He should be handling light and medium weight objects. I ordered OT hand therapy to work on ROM, desensitization, and normalizing function He should massage about the incision site to reduce the risk of hypersensitivity 2. Right middle finger retinacular cyst In the palmar digital crease, in line with the flexor tendon sheath Measuring ~2-3mm in diameter I educated him about this condition I recommend an aspiration today, and he is in agreement Aspiration #1: The risks and benefits of aspiration, including but not limited to risk of damage to blood vessels, nerves, tendons, infection, failure to improve symptoms, increased pain, and possible need for further aspirations or surgical intervention. After obtaining written consent, I sterilely prepped the area over the A1 corona of the right middle finger flexor tendon sheath. I then injected subcutaneously with a small amount 1% lidocaine. I then passed a 27 gauge needle into and fenestrated the ganglion several times, and some viscous fluid was then pushed out of the ganglion. It felt like it decreased in size, but may not be fully resolved. The patient tolerated this well and with no complications. Again he is going to do some work with OT hand therapy and will follow up p.r.n.. Scribed for Faby Miramontes MD by Christiano Noel, medical assistant cardiology, on 04/24/23 at 10:00 AM, EST. Orders: Orders OT Evaluation and Treatment Today M65.331 - Trigger finger, right middle finger, M67.441 - Ganglion, right hand Coding Level of Care Code Est Pt Level 3 (09727) Diagnoses Trigger middle finger of right hand M65.331 Ganglion cyst of flexor tendon sheath of finger of right hand M67.441 CPT Codes Fracture Care - Fracture Billing Code: Fracture Billing Code ([id number])
[2023-04-24 09:49] VITALS: BMI 26.4
== END 2023-04-24 10:32 | disposition home or self-care (01) ==
PROVIDERS: PCP Internal Medicine; Visit Provider Orthopaedic Surgery
DX: M65.331 Trigger finger, right middle finger (principal); M67.441 Ganglion, right hand
CPT/HCPCS: 20612; 99213

== ENCOUNTER → 2023-04-24 09:45 | Outpatient (BNVA) | payer OTHER, SELFPAY | PROVIDERS: PCP Internal Medicine; Visit Provider Orthopaedic Surgery | DX: M67.441 Ganglion, right hand (principal); Z87.39 Personal history of other diseases of the musculoskeletal system and connective tissue; Z98.890 Other specified postprocedural states | CPT/HCPCS: 20612 ==

== ENCOUNTER 2023-05-10 08:36 | Outpatient (REF) | payer OTHER, SELFPAY ==
[2023-05-10 11:36] LABS: MANUAL DIFF FLAG NO
[2023-05-10 11:38] LABS: Appearance Urine Clear; Color Urine Yellow; Glucose Urine UA Negative (Negative); Leukocyte Esterase Urine Negative (Negative); Nitrite Urine Negative (Negative); PH 5.5 (5.0-9.0); Urine Blood Negative (Negative); Urine Ketones Negative (Negative); Urine Protein Negative (Neg-Trace)
[2023-05-10 11:40] LABS: Basophils Percent Auto 0.4 % (0-2); Eosinophils Absolute Auto 0.1 X10*3/uL (0.0-0.4); Eosinophils Percent Auto 1.3 % (0-4); Hematocrit 42.3 % (42.0-52.0); Hemoglobin 14.9 g/dl (14.0-18.0); Imm Gran Abs Auto 0.01 X10*3/uL (0.00-0.03); Imm Gran Pct Auto 0.2 % (0.0-0.4); Lymphocytes Absolute Auto 1.8 X10*3/uL (1.2-4.9); Mean Corpuscular HGB Conc 35.2 g/dl (31.0-36.0); Mean Corpuscular Hemoglobin 30.3 pg (27.0-33.0); Mean Platelet Volume 9.7 fL (9.4-12.4); Monocytes Absolute Auto 0.3 X10*3/uL (0.1-1.2); Monocytes Percent Auto 6.9 % (2-11); Neutrophils Absolute Auto 2.4 x10*3/uL (2.0-8.3); Neutrophils Percent Auto 52.2 % (45-73); Platelet Count 247 X10*3/uL (160-400); Red Blood Count 4.92 X10*6/uL (4.60-5.80); Red Cell Distribution Width 11.9 % (11.0-16.0); White Blood Count 4.6 X10*3/uL (4.8-10.8)
[2023-05-10 11:44] LABS: Bacteria Urine None Seen (None Seen); RBC Urine 0-2 /HPF (0-2); Squamous Epithelial Cell Urine 0-2 /HPF (0-2); WBC Urine 0-5 /HPF (0-5)
[2023-05-10 13:57] LABS: Alanine Aminotransferase 17 U/L (0-40); Albumin Level 4.2 g/dL (3.5-5.0); Alkaline Phosphatase 50 U/L (39-117); Anion Gap 13 (12-20); Aspartate Amino Transferase 17 U/L (5-37); Bilirubin Total 0.5 mg/dL (0.0-1.0); Blood Urea Nitrogen 10 mg/dL (9-16); Calcium 9.4 mg/dL (8.4-10.2); Carbon Dioxide 24 mmol/L (22-29); Chloride 107 mmol/L (96-108); Cholesterol 204 mg/dL (<200); Estimated Glomerular Filt Rate > 60; Glucose Fasting 87 mg/dL (60-99); HDL Cholesterol 47 mg/dL (>40); LDL Cholesterol Calculated 140 mg/dL (<100); Potassium 4.1 mmol/L (3.3-5.1); Sodium 140 mmol/L (135-145); Total Protein 7.5 g/dL (6.5-8.0); Triglycerides 88 mg/dL (<150)
== END 2023-05-10 08:37 | disposition home or self-care (01) ==
LOC: HO.HMGCLDS 08:36
PROVIDERS: PCP Internal Medicine; Visit Provider Internal Medicine
DX: Z00.00 Encounter for general adult medical examination without abnormal findings (principal); E78.5 Hyperlipidemia, unspecified
CPT/HCPCS: 36415; 80053; 80061; 81001; 85025

== ENCOUNTER 2023-05-10 09:06 | Outpatient (AMB) | payer OTHER, SELFPAY ==
[2023-05-10 09:10] VITALS: BP 120/74; PULSE 71; O2SAT 97; BMI 26.4
--- NOTE | 2023-05-10 09:10 | MHC.PC.OV ---
Vital Signs 05/10/23 09:10 Height 6 ft 1 in Weight 200 lb BMI 26.4 BP 120/74 Blood Pressure Location Lt brachial Position Sitting Pulse 71 Pulse Source Pulse Oximeter Pulse Oximetry (%) 97 Oxygen Delivery Method Room Air Intake Visit Reasons: Ear Infection Intake Note: Pt is here today for a sick visit. Pt c.o L ear pain for a week. Allergies No Known Allergies Allergy (Verified 05/10/23 09:11) Medication List - Last Reconciled 05/10/23 by Jacqueline English MD bisacodyl (Dulcolax (bisacodyl)) 20 mg (4 x 5 mg) PO ONCE 1 day ciprofloxacin-dexamethasone 0.3-0.1 % 4 drps otic (ear) left BID 7 days polyethylene glycol 3350 (Miralax) 238 grams PO ONCE Tobacco use date assessed: 04/20/23 HPI Ear Infection HPI Details Pt c/o 1 week L ear pain worse when laying down at night. Patient denies fever chills discharge from left ear. He had sinus congestion runny nose for a few days last week which resolved. PFSH Medical History Hyperlipidemia Surgical History Hx of tonsillectomy Family History Father COPD (chronic obstructive pulmonary disease) Mother Hypertension Social History Household Members Other:: , 2 children (4,6 ), Housing: House Alcohol intake: current Alcohol intake frequency: holidays/special occasions only Alcohol type: hard liquor Patient Tobacco Use Status: Former Tobacco user Tobacco use type: Cigarette e-Cigarette/Vaping Use: Never Used Current occupational status: employed Cognitive needs: No Hearing needs: No Vision needs: No Questionnaire Thrive Questionnaire Date Thrive assessed: 04/20/23 KELLEN-7 AMB Questionnaire KELLEN-7 Date KELLEN - 7 assessed: 04/20/23 Source: Developed by Drs. Mayur Kuo, Nadege Hope, Hector Harkins and colleagues, with an educational anuel from [employer]. Review of Systems Const All systems reviewed & are unremarkable except as noted in HPI and below Reports no additional complaints Eyes Reports no additional complaints ENT Reports no additional complaints Card Reports no additional complaints Resp Reports no additional complaints GI Reports no additional complaints Reports no additional complaints Physical exam (Primary Care) Vital Signs: Last Vital Signs Pulse 71 05/10/23 09:10 BP 120/74 05/10/23 09:10 Pulse Ox 97 05/10/23 09:10 Oxygen Delivery Method Room Air 05/10/23 09:10 BMI result Body Mass Index 26.4 Tobacco/Smoking Status: Tobacco use Status Tobacco use date assessed 04/20/23 05/10/23 09:12 Patient Tobacco Use Status Former Tobacco user 05/10/23 09:12 Tobacco use type Cigarette 05/10/23 09:12 e-Cigarette/Vaping Use Never Used 05/10/23 09:12 Thrive Assessment: Date of Thrive Assessment Date Thrive assessed 04/20/23 05/10/23 09:12 Const General: no acute distress HENMT Head: Yes normal to inspection Ears: TM's normal bilaterally and external ear abnormal (Left ear erythema) General nose exam: Normal external nose present Face and sinus: Yes normal facial exam Mouth: Normal oral and palatal mucosa present Throat: Yes posterior oropharynx normal Neck Neck: Yes no lymphadenopathy and Yes supple Resp Effort & Inspection: normal respiratory effort Auscultation: clear to auscultation bilaterally Cardio Rhythm: regular rhythm Heart sounds: S1 normal heart sound present and S2 normal heart sound present Assessment and Plan Assessment & Plan (1) Otitis externa: Code(s): H60.90 - Unspecified otitis externa, unspecified ear Plan: Ciprofloxacin/dexamethasone ear drops are prescribed and supportive care discussed Medications: New ciprofloxacin-dexamethasone 0.3-0.1 % 4 drps otic (ear) left BID 7 days 7.5 mL 0RF Coding Level of Care Code Est Pt Level 3 (86204) Diagnoses Otitis externa H60.90
== END 2023-05-10 09:38 | disposition home or self-care (01) ==
LOC: HO.HMGC 09:07
PROVIDERS: PCP Internal Medicine; Visit Provider Internal Medicine
DX: H60.92 Unspecified otitis externa, left ear (principal)
CPT/HCPCS: 99213

== ENCOUNTER 2023-05-17 09:30 | Outpatient (RCR) | payer OTHER, SELFPAY ==
--- NOTE | 2023-08-02 13:44 | MHC.OT.DC ---
[address] [phone] F: [phone] Occupational Therapy Discharge Note Patient Name: Orion Desai Provider: Faby Miramontes Diagnosis: Post right middle finger trigger release Date of Surgery: 03/12/23 Date of Evaluation: 05/07/23 Date of Discharge: 08/02/23 Treatments to Date: 2 Cancellations to Date: 1 No Shows to Date: 1 Discharge Status: Discharge Summary: Patient reported the other day he had increased swelling and pain increased to an 8/10 from doing normal things Patient reported 3/10 pain after treatment session Electronically Signed By: CAROL Molina/Kait, CLT Reviewed/agree with student documentation: Therapist: Please Sign and return to therapist, thank you for your referral.
== END 2023-08-02 13:45 | disposition home or self-care (01) ==
LOC: HO.OT 09:30
PROVIDERS: PCP Internal Medicine; Visit Provider Orthopaedic Surgery
DX: M65.331 Trigger finger, right middle finger (principal); M67.441 Ganglion, right hand
CPT/HCPCS: 97110; 97166

== ENCOUNTER 2023-07-11 08:32 | Day surgery (SDC) | payer OTHER, SELFPAY ==
[2023-07-10 07:01] VITALS: BMI 26.4
--- NOTE | 2023-07-10 09:34 | HO.ANESPROP2 ---
Documented by User: Danielle Rosa NP 07/10/23 09:34 HPI - Anesthesia Eval Consult details Narrative: 48yo M for ?Colonoscopy PMFSH Active Problems Active Problems: All Active Problems Otitis externa (Acute) Ganglion cyst of flexor tendon sheath of finger of right hand (Acute) Trigger middle finger of right hand (Acute) Lipoma (Acute) Lower back pain (Acute) Annual physical exam (Acute) Neck pain (Acute) Dysplastic nevus (Acute) Past Medical History Medical History Hyperlipidemia Family History Family History Father COPD (chronic obstructive pulmonary disease) Mother Hypertension Family history of problems with anesthesia: No Surgical History Surgical History Hx of tonsillectomy History of Problems with Anesthesia: No Social History Social History Household Members Other:: , 2 children (4,6 ), Housing: House Alcohol intake: current Alcohol intake frequency: holidays/special occasions only Alcohol type: hard liquor Patient Tobacco Use Status: Former Tobacco user Tobacco use type: Cigarette e-Cigarette/Vaping Use: Never Used Use of substances other than those prescribed or required for medical reasons: No Are you DNR?: No Advance Directives: No Advance Directives Information Provided: Yes Current occupational status: employed Cognitive needs: No Hearing needs: No Vision needs: No Meds Allergies Allergy/AdvReac Type Severity Reaction Status Date / Time No Known Allergies Allergy Verified 07/11/23 09:48 Home Medications ?Medication ?Instructions ?Recorded ?Confirmed ?Last Taken ?Type No Known Home Meds 07/11/23 07/11/23 Unknown History Exam Height,Weight and Vital Signs: Height 6 ft 1 in Weight 90.718 kg Assessment and Plan Assessment Anesthesia Assessment: Chart Reviewed Final Anesthetic Review Family History of Problems with Anesthesia: No History of Problems with Anesthesia: No Documented by User: Natali Shepard MD 07/11/23 10:08 [facility] Past Medical History Medical History Hyperlipidemia Family History Family History Father COPD (chronic obstructive pulmonary disease) Mother Hypertension Surgical History Surgical History Hx of tonsillectomy Social History Social History Household Members Other:: , 2 children (4,6 ), Housing: House Alcohol intake: current Alcohol intake frequency: holidays/special occasions only Alcohol type: hard liquor Patient Tobacco Use Status: Former Tobacco user Tobacco use type: Cigarette e-Cigarette/Vaping Use: Never Used Use of substances other than those prescribed or required for medical reasons: No Are you DNR?: No Advance Directives: No Advance Directives Information Provided: Yes Current occupational status: employed Cognitive needs: No Hearing needs: No Vision needs: No Meds Allergies Allergy/AdvReac Type Severity Reaction Status Date / Time No Known Allergies Allergy Verified 07/11/23 09:48 Home Medications ?Medication ?Instructions ?Recorded ?Confirmed ?Last Taken ?Type No Known Home Meds 07/11/23 07/11/23 Unknown History Exam Airway Mallampati Class: II (implant top left) TM Dist: >3cm Neck ROM: Full Heart: rrr Lungs: cta Assessment and Plan Assessment Anesthesia Assessment: Anesthesia Plan Discussed Final Anesthetic Review NPO: Yes ASA Class: II Final Preanesthetic Review: No Changes in Pt Med Stat, Meds/Allgs Chart Reviewed and Consent Obtained/Reviewed Patient Risk: Low Procedure Risk: Low Anesthetic Plan Anesthetic Plan: MAC: Disposition: Standard PACU
[2023-07-11 09:49] VITALS: BMI 26.0
[2023-07-11 09:55] VITALS: BP 132/88; PULSE 67; RESP 16; TEMP 36.7; O2SAT 96
[2023-07-11] MEDS: Lactated Ringers 1,000 ML 100 ML IVCONT (10:04)
--- NOTE | 2023-07-11 10:05 | MHC.SHP ---
Pre-Procedural Eval Section A - 24 Hr Update-Section A only Date of Service: 07/11/23 Section B - Complete if H&P > 30 days Chief Complaint: Encounter for screening for malignant neoplasm of Relevant Family History (Specify if Yes): No Relevant Social History: None Present Medications: see Short Stay Collaborative assessment Medical History: Significant History (Hyperlipidemia) History of Previous Operations: Relevant previous surgery/procedure and date(s) ( Hx of tonsillectomy) Allergies: Allergies Allergy/AdvReac Type Severity Reaction Status Date / Time No Known Allergies Allergy Verified 07/11/23 09:48 Review of Systems Sugical H&P ROS: Negative: Constitution, Cardiovascular, Respiratory, Neurological, Psychiatric, Hem-Onc, Allergic/Immunologic, Gastrointestinal, Genitourinary, Musculoskeletal, Integumentary, Endocrine and Eyes/Ears/Nose/Throat Exam Surgical H&P Exam: Normal: HEENT, Normal: Heart, Normal: Lungs, Normal: Extremities, Normal: Abdomen, Normal: Skin and Normal: Neurological Plan Diagnosis/Plan: Unchanged I have reviewed the history and physical and performed a pertinent physical examination on my patient. No changes have occurred unless specified. Time Spent With Patient Time: Total time managing care of this patient today ____ minutes.
--- NOTE | 2023-07-11 10:09 | HO.OPN-COLON ---
Colonoscopy Operative Note Operative Note Date of Service: 07/11/23 Narrative: Operative Information Procedure Description: Colonoscopy Indication: screening Anesthesia: MAC COLONOSCOPY Instrument: Olympus variable stiffness pediatric scope 190L Colonoscopy Monitoring: Vital signs and clinical assessment, continuous EKG monitoring, Pulse oximetry, Carbon Dioxide monitoring and blood pressure monitoring were done throughout the procedure. Colon withdrawal time was 11 minutes. Procedure: The patient was placed in the left lateral decubitis position and pre-procedure medications were administered. After a digital rectal examination of the ano-rectum, the video colonoscope was inserted into the rectum and advanced through the colon to the cecum/TI. The colonoscope was slowly withdrawn in a retrograde panoramic fashion and the colon mucosa was carefully examined including a retroflexed view of the rectum. Findings and interventions are described below. Procedure Difficulty: easy Findings: Terminal Ileum-normal Cecum:normal Right sided retroflexion- normal Ascending Colon: normal Transverse Colon -normal Descending Colon:normal Sigmoid Colon: mild diverticulosis Rectum: Retroflexion with small internal hemorrhoids seen, grade I Anorectum - normal Intervention: none Colon preparation: [place] Bowel Preparation Scale Right colon; 2 Transverse colon: 2 Left colon; 2 (0 = Unprepared colon segment with mucosa not seen due to solid stool that cannot be cleared. 1 = Portion of mucosa of the colon segment seen, but other areas of the colon segment not well seen due to staining, residual stool and/or opaque liquid. 2 = Minor amount of residual staining, small fragments of stool and/or opaque liquid, but mucosa of colon segment seen well. 3 = Entire mucosa of colon segment seen well with no residual staining, small fragments of stool or opaque liquid) Impression and Post Procedure Diagnosis: diverticulosis internal hemorrhoids Plan: High fiber diet leaflet Avoid straining at stool, epsom salts and sitz bath, anusol supps or cream Repeat Colonoscopy in 10 years or earlier if clinically indicated Above findings were reviewed with the patient and relevant handouts were provided if indicated.
[2023-07-11 10:45] VITALS: BP 105/77; PULSE 70; RESP 16; TEMP 36.1; O2SAT 95
[2023-07-11 11:00] VITALS: BP 118/81; PULSE 72; RESP 18; TEMP 36.5; O2SAT 96
== END 2023-07-11 11:27 | disposition home or self-care (01) ==
PROVIDERS: PCP Internal Medicine; Visit Provider Internal Medicine Gastroenterology
PROC: 0DJD8ZZ Inspection of Lower Intestinal Tract, Via Natural or Artificial Opening Endoscopic (ICD-10-PCS; CPT 45378; principal; 2023-07-11 10:50)
DX: Z12.11 Encounter for screening for malignant neoplasm of colon (principal); K57.30 Diverticulosis of large intestine without perforation or abscess without bleeding; K64.0 First degree hemorrhoids
CPT/HCPCS: 45378; J2704

== ENCOUNTER → 2023-07-11 08:32 | Outpatient (BNV) | payer OTHER, SELFPAY | PROVIDERS: PCP Internal Medicine; Visit Provider Internal Medicine Gastroenterology | DX: Z12.11 Encounter for screening for malignant neoplasm of colon (principal); K57.30 Diverticulosis of large intestine without perforation or abscess without bleeding; K64.0 First degree hemorrhoids | CPT/HCPCS: 45378 ==

== ENCOUNTER 2024-04-03 08:01 | Outpatient (REF) | payer OTHER, SELFPAY ==
[2024-04-03 11:18] LABS: Influenza A PCR POSITIVE (Negative); Influenza B PCR NEGATIVE (Negative); Resp Syncy Virus RNA Qual PCR NEGATIVE (Negative); SARS COV2 PCR INHOUSE NEGATIVE (Negative)
== END 2024-04-03 08:02 | disposition home or self-care (01) ==
LOC: HO.LAB 08:01
PROVIDERS: PCP Internal Medicine; Visit Provider Physician Assistant
DX: J06.9 Acute upper respiratory infection, unspecified (principal)
CPT/HCPCS: 0241U

== ENCOUNTER 2025-01-09 08:08 | Outpatient (AMB) | payer BC, SELFPAY ==
--- NOTE | 2025-01-09 08:16 | AM.OFFWIN_ITS ---
Intake Vital Signs 01/09/25 08:19 Height 6 ft 1 in Weight 198 lb BMI 26.1 BP 118/70 Blood Pressure Location Lt brachial Position Sitting Pulse 91 Pulse Source Pulse Oximeter Pulse Oximetry (%) 98 Oxygen Delivery Method Room Air Intake Visit Reasons: EP-headaches, insomnia Intake Note: Patient presents c/o headache all day yesterday but has noticed more frequent headaches. Patient also mentions trouble sleeping. Patient Tobacco Use Status: Former Tobacco user Allergies No Known Allergies Allergy (Verified 01/09/25 08:20) HPI HPI Comments History of Present Illness Details History of Present Illness - The patient is a 49-year-old male pres enting with new onset of frequent headaches starting about a month ago. - The headaches started approximately on e month ago and occur frequently, often persisting throughout the day. - The patient reports the headaches are primarily located in the frontal region and are associated with tearing of the eyes. - There is no associated nausea, vomitin g, light sensitivity, or sound sensitivity. - The patient has been using Tylenol for headache relief, taking 500 mg. - The patient denies any recent head inj uries and reports no significant changes in diet or caffeine intake. - The patient maintains a regular exerci se routine and reports no family history of thyroid disorders. - Pt is concerned about a dermatological lesion on the left cheek, described as slightly raised, brown, with uneven borders, he tells me it has changed shape over the last few months. He had it evaluated at [facility] in [place] about 2 years ago but it has changed and he wants it removed as he is concerned. Is asking for referral back to [facility] in [place]. Review of Systems - Neurological: Reports frequent headach es, primarily frontal, with tearing of the eyes. Denies nausea, vomiting, photophobia, or phonophobia. - Dermatological: Reports a lesion on th e left cheek, slightly raised and brown. - ENT: Reports history of left ear infec tions. Denies recent changes in hearing or ear pain. All systems reviewed and are unremarkable except as noted in HPI Physical Exam General: Cooperative, healthy appearing, comfortable, no acute distress and well developed Orientation: Patient oriented x3 Limitations: No limitations Head: Normal to inspection Ears: Hearing grossly normal in the right ear, issues with the left ear due to infection Nose: Normal External nose present Face and sinus: Lesion on the left cheek, approximately 0.5 cm x 0.75 cm, slightly raised, brown in color, with completely uneven borders, almost looks spiculated Eyes: Appearance normal, both eyes and all related structures Neck: Normal visual inspection and Yes full ROM Respiratory: Normal respiratory effort and able to speak in complete sentences. Skin: No rashes or lesions noted except for the lesion on the left cheek, as described above Neuro: Patient oriented x3 Extremities: Normal to inspection PFSH Medical History Hyperlipidemia Surgical History Hx of tonsillectomy Family History Father COPD (chronic obstructive pulmonary disease) Mother Hypertension Social History Household Members Other:: , 2 children (4,6 ), Housing: House Alcohol intake: current Alcohol intake frequency: holidays/special occasions only Alcohol type: hard liquor Patient Tobacco Use Status: Former Tobacco user Tobacco use type: Cigarette e-Cigarette/Vaping Use: Never Used Current occupational status: employed Cognitive needs: No Hearing needs: No Vision needs: No Physical Exam Vital Signs: Last Vital Signs Pulse 91 01/09/25 08:19 BP 118/70 01/09/25 08:19 Pulse Ox 98 01/09/25 08:19 Oxygen Delivery Method Room Air 01/09/25 08:19 BMI result Body Mass Index 26.1 Assessment & Plan Assessment & Plan (1) Cluster headache: Code(s): G44.009 - Cluster headache syndrome, unspecified, not intractable Qualifiers: Headache chronicity pattern: unspecified pattern Intractability: not intractable Qualified Code(s): G44.009 - Cluster headache syndrome, unspecified, not intractable Plan: Plan Patient was informed and verbally consented to the use of an ambient scribe for clinic note documentation during this visit. - Recommended taking 1000 mg of Tylenol every 8 hours for headache relief. - Recommended alternating ibuprofen 600mg every 6 hours if needed. - Advised to maintain hydration and regular sleep patterns to help alleviate symptoms. - Suggested follow-up with Dr. English if headaches persist despite treatment, made appt for 11/20 9am. (2) Lesion of skin of face: Code(s): L98.9 - Disorder of the skin and subcutaneous tissue, unspecified Plan: - Referred to dermatology for further evaluation of the lesion. Orders: Referrals Dermatology Referral L98.9 - Disorder of the skin and subcutaneous tissue, unspecified Medications: Refilled oseltamivir (Tamiflu) 75 mg PO Q12H 10 caps 0RF 5 days Coding Level of Care Code Est Pt Level 4 (66276) Diagnoses Cluster headache, not intractable, unspecified chronicity pattern G44.009 Headache chronicity pattern: unspecified pattern Intractability: not intractable Lesion of skin of face L98.9
[2025-01-09 08:19] VITALS: BP 118/70; PULSE 91; O2SAT 98; BMI 26.1
== END 2025-01-09 08:54 | disposition home or self-care (01) ==
PROVIDERS: PCP Internal Medicine; Visit Provider Physician Assistant
DX: G44.009 Cluster headache syndrome, unspecified, not intractable (principal); L98.9 Disorder of the skin and subcutaneous tissue, unspecified